=== PATIENT | female | born 1990 | race African-American/Black ===

== ENCOUNTER 2019-06-18 09:01 | Day surgery (SDC) | payer OTHER ==
[2019-06-17 09:51] VITALS: BMI 29.7
[2019-06-18] MEDS ORDERED: ROPIVACAINE HCL 0.5% 30ML VIAL ONE (09:27)
[2019-06-18] MEDS ORDERED: MIDAZOLAM HCL 2 MG/2 ML SINGLE DOSE VIAL ONE ×2 (09:27→13:17)
[2019-06-18] MEDS ORDERED: MORPHINE SULFATE 10 MG/1 ML *VIAL ONE (13:17)
[2019-06-18] MEDS ORDERED: BUPIVACAINE HCL/PF 2.5 MG/ML - 30 ML VIAL IJ ONE (13:17)
[2019-06-18] MEDS ORDERED: PROPOFOL 20 ML ONE (13:23)
[2019-06-18] MEDS ORDERED: ONDANSETRON 4 MG/2 ML VIAL ONE (13:32)
[2019-06-18] MEDS ORDERED: DEXAMETHASONE SOD PHOSPHATE 4 MG/1 ML VIAL ONE (13:32)
[2019-06-18] MEDS ORDERED: ceFAZolin SODIUM 1 GM VIAL ONE (13:40)
[2019-06-18] MEDS ORDERED: HYDROmorphone HCL/PF 1 MG/ML AMP ONE (14:03)
[2019-06-18 15:16] VITALS: TEMP 98.4
[2019-06-18 16:35] VITALS: BP 110/70
[2019-06-18 16:40] VITALS: PULSE 74
--- NOTE | 2019-06-18 18:41 | OP ---
DATE OF OPERATION: 06/18/2019 PREOPERATIVE DIAGNOSIS: Tearing of the rotator cuff with frozen right shoulder. POSTOPERATIVE DIAGNOSES: 1. 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 2. Glenoid labral tearing. 3. Tearing of the rotator cuff. 4. Impingement from the acromion. 5. Impingement from the lateral clavicle including the articular portion. 6. Extensive joint debris. PROCEDURES PERFORMED: 1. Manipulation of the right shoulder under anesthesia with lysis and resection of adhesions. 2. Glenoid labral resection. 3. Debridement of rotator cuff tear. 4. Partial acromioplasty. 5. Lateral clavicular resection including articular portion, a Gauri procedure. 6. Extensive joint debridement. SURGEON: Cole Flores MD EXTERIOR INTERIOR SPECIALIST: MATT Mckeon ANESTHESIA: Edi Mariscal MD TYPE OF ANESTHESIA: General DESCRIPTION OF PROCEDURE: The procedure consisted of the patient being brought into the operating room and gently transferred from the stretcher to the OR table with all bony prominences well padded. The right shoulder was prepared and draped in a sterile fashion. The patient was given intravenous antibiotics and copious irrigation throughout the procedure to minimize risk for infection. A complete risk, benefit, alternative discussion was conducted with the patient, which was inclusive of, but not limited to, infection, bleeding, , paralysis, increased pain, need for repeat surgery. Patient asked questions, understood the procedure, and desired to proceed with surgical treatment. Following the sterile preparation and draping of the right shoulder, the patient had been placed in the right side up, lateral decubitus position with all bony prominences well padded. A pillow was placed below the legs and a pillow between the legs to protect the neurovascular structures to the legs. A conforming pneumatic patient support was used to contour to the body and hold the patient in a comfortable position. The axillary roll was used to protect the lower arm. The neck was protected and kept in good alignment by the anesthesiologist throughout the procedure, and the face was protected by the anesthesiologist throughout the procedure. Gentle traction of approximately 8 pounds was applied across the shoulder joint. A gentle manipulation of the right shoulder had been performed. The initial abduction was 90 degrees, flexion 90 degrees, extension 10 degrees, internal rotation 80 degrees, external rotation was 10 degrees. Following the gentle, slow manipulation, the shoulder abduction was 165 degrees, flexion to 165 degrees, extension 30 degrees, internal rotation 90 degrees, external rotation 25 degrees. The glenohumeral joint had been evaluated using anterior, posterior, and lateral portals for introduction of the arthroscope and arthroscopic instruments. The anterior portal was fabricated using the inside out method over a transfer maggie to protect the anterior neurovascular structures. The glenohumeral joint had adhesions within the joint, which were lysed and resected. The glenohumeral joint was evaluated. The anterior and posterior recesses were without loose body. The middle glenohumeral ligament and the biceps tendon were found to be intact. There was noted to be tearing of the rotator cuff, which was probed and found to be partial thickness, and this was debrided using shaver and radiofrequency wand. The glenoid labrum was also noted to have a tear, and this was debrided using shaver and radiofrequency wand. There was noted to be extensive joint debris within the glenohumeral joint, and an extensive joint debridement was performed. Our attention was turned to the subacromial space. There was noted to be inflamed bursal tissue, and extensive bursectomy was performed. Rotator cuff on the bursal side was found to be intact. The lateral acromion was noted to have an edge of bone impingement on the rotator cuff, and this was debrided, and high-speed bur and shaver were used to resect a wedge of bone thick anteriorly, thin posteriorly. Lateral clavicle including the articular portion was also creating impingement, and this was debrided using shaver and radiofrequency wand. High-speed bur was used to resect the lateral clavicle including the articular portion. The shoulder joint was then copiously irrigated with sterile saline irrigant. The wounds were closed with 4-0 undyed Vicryl followed by Steri-Strips, Xeroform, 4 x 4's, Combine, Elastoplast, and a shoulder immobilizer. The patient was then gently awoken from anesthesia without incident and transferred from the operating room to the recovery room in excellent condition. There were no intraoperative complications. Patient tolerated the procedure well. Joanie [id number]
== END 2019-06-18 16:35 | disposition home or self-care (01) ==
LOC: FASU 09:01
PROVIDERS: ATTEND Orthopaedic Surgery
PROC: 0RBJ4ZZ Excision of Right Shoulder Joint, Percutaneous Endoscopic Approach (ICD-10-PCS; 2019-06-18)
PROC: 0PB94ZZ Excision of Right Clavicle, Percutaneous Endoscopic Approach (ICD-10-PCS; principal; 2019-06-18 13:55)
DX: M75.101 Unspecified rotator cuff tear or rupture of right shoulder, not specified as traumatic (principal); M75.01 Adhesive capsulitis of right shoulder; M24.011 Loose body in right shoulder; M24.111 Other articular cartilage disorders, right shoulder; M75.41 Impingement syndrome of right shoulder
CPT/HCPCS: 84703; 94760